=== PATIENT | male | born 1965 | race Caucasian/White ===

== ENCOUNTER → 2017-09-15 | Outpatient (CLI) | payer BC | LOC: M RAD 15:01 | DX: E29.1 Testicular hypofunction (principal) | CPT/HCPCS: 77066 ==

== ENCOUNTER → 2017-11-03 | Outpatient (CLI) | payer BC | LOC: M EKG 08:18 | DX: Z01.818 Encounter for other preprocedural examination (principal); G47.9 Sleep disorder, unspecified; I44.0 Atrioventricular block, first degree; I45.10 Unspecified right bundle-branch block | CPT/HCPCS: 93005 ==

== ENCOUNTER 2017-11-04 05:44 | Day surgery (SDC) | payer BC ==
[2017-11-04] MEDS ORDERED: LR 1,000 ML IV (06:00)
[2017-11-04] MEDS ORDERED: SUCCINYLCHOLINE 100 MG/5 ML SYRINGE (J0330) As Ordered (07:10)
[2017-11-04] MEDS ORDERED: LIDOCAINE 2% INJ 100 MG/5 ML SDV (FOR ANES.) As Ordered (07:10)
[2017-11-04] MEDS ORDERED: ROCURONIUM BROMIDE 50 MG/5 ML VIAL As Ordered (07:10)
[2017-11-04] MEDS ORDERED: PROPOFOL 200 MG/20 ML VIAL As Ordered (07:10)
[2017-11-04] MEDS ORDERED: fentaNYL 100 MCG/2 ML INJECTION (J3010) As Ordered ×2 (07:10)
[2017-11-04] MEDS ORDERED: MIDAZOLAM INJ 2 MG/2 ML VIAL (J2250) As Ordered (07:11)
[2017-11-04] MEDS ORDERED: KETAMINE HCL 200 MG/20 ML VIAL As Ordered (07:33)
[2017-11-04] MEDS: BUPIVACAINE/EPIN 0.25% 30 ML VIAL As Ordered (08:08)
== END 2017-11-04 10:10 | disposition home or self-care (01) ==
LOC: M SDC 05:44
DX: D17.39 Benign lipomatous neoplasm of skin and subcutaneous tissue of other sites (principal); I10 Essential (primary) hypertension; E78.5 Hyperlipidemia, unspecified; G47.30 Sleep apnea, unspecified; M10.9 Gout, unspecified; E66.9 Obesity, unspecified; Z79.899 Other long term (current) drug therapy
CPT/HCPCS: 19120

== ENCOUNTER 2018-10-29 11:41 | Day surgery (SDC) | payer BC ==
[~2018-10-29] VITALS: Ht 180.3 cm; Wt 150.1 kg
[~2018-10-29 11:41] MED LIST: LISI10TA4; NS 1,000 ML IV ONE; SIMV40TA2; VITA50005; ZYLO300T6 PO; ceFAZolin SOD 1 GM in D5W MINI-BAG PLUS 50 ML IV ONE
[2018-10-29] MEDS ORDERED: IBUPROFEN 100 MG/5 ML SUSP UDC DYE FREE As Ordered ONE (12:22)
[2018-10-29] MEDS ORDERED: NS 1,000 ML IV SCH ×2 (12:30)
[2018-10-29] MEDS ORDERED: ceFAZolin 1GM INJ (J0690 PER 500MG) As Ordered ONE (12:40)
[2018-10-29] MEDS ORDERED: LIDOCAINE 2% INJ 100 MG/5 ML SDV (FOR ANES.) As Ordered ONE (13:14)
[2018-10-29] MEDS ORDERED: PROPOFOL 200 MG/20 ML VIAL As Ordered ONE (13:14)
--- NOTE | 2018-10-29 13:15 | ROOR ---
Patient Name: Asim Simon Procedure Date: 10/29/2018 12:49 PM Date of : 1965 Age: 53 Room: [facility] Gender: Male Note Status: Finalized Procedure: Upper GI endoscopy Indications: Abdominal pain in the right upper quadrant Providers: Nishant Damon Jr, MD Referring MD: TOBY GORMAN MD Requesting Provider: Medicines: Propofol per Anesthesia Complications: No immediate complications. Procedure: Pre-Anesthesia Assessment: - Prior to the procedure, a History and Physical was performed, and patient medications and allergies were reviewed. The patient is competent. The risks and benefits of the procedure and the sedation options and risks were discussed with the patient. All questions were answered and informed consent was obtained. Patient identification and proposed procedure were verified by the physician and the nurse in the pre-procedure area and in the procedure room. Mental Status Examination: alert and oriented. Airway Examination: normal oropharyngeal airway and neck mobility. Respiratory Examination: clear to auscultation. CV Examination: normal. ASA Grade Assessment: II - A patient with mild systemic disease. After reviewing the risks and benefits, the patient was deemed in satisfactory condition to undergo the procedure. The anesthesia plan was to use moderate sedation / analgesia (conscious sedation). Immediately prior to administration of medications, the patient was re-assessed for adequacy to receive sedatives. The heart rate, respiratory rate, oxygen saturations, blood pressure, adequacy of pulmonary ventilation, and response to care were monitored throughout the procedure. The physical status of the patient was re-assessed after the procedure. The Endoscope was introduced through the mouth, and advanced to the second part of duodenum. The upper GI endoscopy was accomplished without difficulty. The patient tolerated the procedure well. Findings: The upper third of the esophagus, middle third of the esophagus and lower third of the esophagus were normal. The cardia, gastric fundus and gastric body were normal. Localized moderate inflammation characterized by congestion (edema), erythema, friability and shallow ulcerations was found in the gastric antrum. Biopsies were taken with a cold forceps for histology. Patchy moderate inflammation characterized by congestion (edema) and erythema was found in the duodenal bulb. The first portion of the duodenum and second portion of the duodenum were normal. Impression: - Normal upper third of esophagus, middle third of esophagus and lower third of esophagus. - Normal cardia, gastric fundus and gastric body. - Gastritis. Biopsied. - Duodenitis. - Normal first portion of the duodenum and second portion of the duodenum. Recommendation: - Discharge patient to home (ambulatory). - Return to my office as previously scheduled. Nishant Damno MD Nishant Damon Jr, MD 10/29/2018 1:14:35 PM Electronically signed by Nishant Damon Jr, MD Number of Addenda: 0 Note Initiated On: 10/29/2018 12:49 PM Estimated Blood Loss: Estimated blood loss: none.
[2018-10-29 13:37] VITALS: BP 170/93
== END 2018-10-29 13:45 | disposition home or self-care (01) ==
LOC: M OPP 11:41
PROVIDERS: ATTEND Surgery
DX: K29.70 Gastritis, unspecified, without bleeding (principal); K29.80 Duodenitis without bleeding; R10.11 Right upper quadrant pain

== ENCOUNTER → 2018-10-30 | Outpatient (CLI) | payer BC ==
[~2018-10-30] MED LIST changes: +GASTROGRAFIN SOLUTION 30ML (Q9963) As Ordered ONE; +ISOVUE-370 76% 100ML VIAL (Q9967) As Ordered ONE; -NS 1,000 ML IV ONE; -ceFAZolin SOD 1 GM in D5W MINI-BAG PLUS 50 ML IV ONE
--- NOTE | 2018-10-30 20:28 | REP ---
CT ABDOMEN AND PELVIS WITH ORAL CONTRAST, WITH AND WITHOUT IV CONTRAST: TECHNIQUE: Axial noncontrast images through the abdomen followed by contrast-enhanced images through the abdomen and pelvis using 100 mL Isovue 370 intravenous contrast material, with coronal and sagittal reformations. In the visualized lung bases there is a calcified granuloma in the left lower lobe. There are mild bibasilar interstitial fibrotic changes. Calcified left hilar lymph nodes are seen. The liver demonstrates no mass. Tiny calcified granulomas are seen in the spleen. Adrenals and pancreas appear normal. There is focal cortical scarring in the upper pole of the left kidney. There is no hydronephrosis or nephrolithiasis bilaterally. Ureters are normal in caliber. There is no gallbladder wall edema. There is mild atherosclerotic calcification of the abdominal aorta without aneurysm. There is no adenopathy. There is no free air or free fluid. There is no bowel wall thickening. No pelvic mass is seen. Urinary bladder is mildly distended and grossly unremarkable. I see no anterior abdominal wall defect. There are degenerative changes of the spine. IMPRESSION: Evidence of prior granulomatous disease with calcified left hilar lymph nodes and a calcified granuloma in the left lower lobe. There are calcified granulomas in the spleen. No significant abnormalities are identified in the abdomen or pelvis. Electronically Signed by Julio Cesar Bruner MD 10/31/2018 07:16 P
== END ==
LOC: M RAD 17:29
PROVIDERS: ATTEND Surgery
DX: Z87.09 Personal history of other diseases of the respiratory system (principal)
CPT/HCPCS: 74178; Q9963; Q9967

== ENCOUNTER → 2019-07-14 | Outpatient (REF) | payer BC ==
[~2019-07-14] MED LIST changes: -GASTROGRAFIN SOLUTION 30ML (Q9963) As Ordered ONE; -ISOVUE-370 76% 100ML VIAL (Q9967) As Ordered ONE; -SIMV40TA2; +SIMV40TA20
== END ==
LOC: M LAB REF 13:25
PROVIDERS: ATTEND Orthopaedic Surgery Hand Surgery
DX: D48.5 Neoplasm of uncertain behavior of skin (principal)

== ENCOUNTER → 2020-06-01 | Outpatient (CLI) | payer SELFPAY | LOC: M LABSMTC 10:07 | PROVIDERS: ATTEND Pediatrics | DX: Z20.822 Contact with and (suspected) exposure to COVID-19 (principal) ==

== ENCOUNTER → 2020-09-18 | Outpatient (CLI) | payer BC ==
[~2020-09-18] MED LIST changes: +LISI10TA22; -LISI10TA4
== END ==
LOC: M LABSMTC 12:38
PROVIDERS: ATTEND Pediatrics
DX: Z20.822 Contact with and (suspected) exposure to COVID-19 (principal)

== ENCOUNTER → 2022-11-11 | Outpatient (CLI) | payer BC | LOC: M RAD 09:21 | PROVIDERS: ATTEND Nurse Practitioner Adult Health | DX: R06.02 Shortness of breath (principal) ==

== ENCOUNTER → 2024-01-22 | Outpatient (CLI) | payer BC | LOC: M PLARAD 07:53 | PROVIDERS: ATTEND Family Medicine | DX: M54.12 Radiculopathy, cervical region (principal); M50.31 Other cervical disc degeneration, high cervical region ==